=== PATIENT | female | born 1990 | race Two or more races ===

== ENCOUNTER 2022-07-06 10:31 | Outpatient (REF) | payer OTHER, SELFPAY ==
--- NOTE | ~2022-07-06 | US_ITS ---
EXAMINATION: US ABDOMEN COMPLETE CLINICAL INFORMATION: Cholesterolosis of gallbladder. COMPARISON: None TECHNIQUE: Real-time imaging of the abdominal viscera. FINDINGS: PANCREAS: Normal. ABDOMINAL AORTA: The proximal, mid, and distal segments are normal in caliber. INFERIOR VENA CAVA: Visualized portions are normal. LIVER: Normal. The liver is normal in size. The liver contour is normal. Parenchymal echogenicity is normal. No focal hepatic lesion. There is no intrahepatic biliary duct dilatation seen. GALLBLADDER: The gallbladder is physiologically distended. There is a nonmobile echogenic polyp measuring 0.3 x 0.3 x 0.3 cm along the anterior gallbladder wall. There is echogenic mobile debris, likely gravel. No evidence of gallbladder wall thickening or pericholecystic fluid. COMMON BILE DUCT: Normal in caliber measuring 0.3 cm in diameter. RIGHT KIDNEY: Normal. No hydronephrosis. No renal calculi or focal parenchymal lesions. The kidney measures 9.9 cm in maximum dimension. LEFT KIDNEY: Normal. No hydronephrosis. No renal calculi or focal parenchymal lesions. The kidney measures 11.5 cm in maximum dimension. SPLEEN: Normal. The spleen measures 10.2 cm in maximum dimension. FREE FLUID: None. US/US abdomen complete IMPRESSION: There is echogenic gallbladder gravel without wall thickening. Also visualized is a small gallbladder polyp measuring 3 mm. The rest of the abdominal ultrasound is unremarkable.
== END 2022-07-06 10:32 | disposition home or self-care (01) ==
LOC: HO.US 10:31
PROVIDERS: Visit Provider Internal Medicine
DX: K82.4 Cholesterolosis of gallbladder (principal)
CPT/HCPCS: 76700

== ENCOUNTER 2022-07-16 14:02 | Outpatient (REF) | payer OTHER, SELFPAY ==
[2022-07-16 15:41] LABS: C Reactive Protein 0.03 mg/dL (< or = 0.50)
[2022-07-16 16:08] LABS: TSH reflex Free T4 0.87 uIU/mL (0.32-4.0)
== END 2022-07-16 14:03 | disposition home or self-care (01) ==
LOC: HO.LAB 14:02
PROVIDERS: PCP Internal Medicine; Visit Provider Internal Medicine
DX: R14.0 Abdominal distension (gaseous) (principal); R19.7 Diarrhea, unspecified
CPT/HCPCS: 36415; 84443; 86140